=== PATIENT | female | born 1955 | race African-American/Black ===

== ENCOUNTER 2016-10-16 11:48 | Emergency (ER) | payer MEDICARE ==
--- NOTE | 2016-10-16 11:56 | ER Document Report ---
ED Medical Screen (RME) - General Stated Complaint: BLOOD PRESSURE PROBLEM Notes: patient is a 61 year old female who presents to the ED for elevated BP, headache , SOB referred by Dr. Trevino headache >24 hours over the past couple of weeks SOB: has been gasping intermittently for one month baseline 130/80's, on losartan took at 830 PMH: HTN, DM I have greeted and performed a rapid initial assessment of this patient. A comprehensive ED assessment and evaluation of the patient, analysis of test results and completion of the medical decision making process will be conducted by additional ED providers. TRAVEL OUTSIDE OF THE [place] IN LAST 30 DAYS: No - Related Data Allergies/Adverse Reactions: duloxetine Allergy (Verified 10/16/16 11:53) tramadol Allergy (Verified 10/16/16 11:53) Past Medical History - Past Medical History Cardiac Medical History: Reports: Hx Hypertension Endocrine Medical History: Reports: Hx Diabetes Mellitus Type 1, Hx Diabetes Mellitus Type 2 - Diet controlled, Hx Hypothyroidism GI Medical History: Reports: Hx Gastroesophageal Reflux Disease Musculoskeltal Medical History: Reports Hx Arthritis Past Surgical History: Reports: Hx Cholecystectomy, Hx Gynecologic Surgery - Bilateral oophorectomy, Hx Hysterectomy - Immunizations Hx Diphtheria, Pertussis, Tetanus Vaccination: Yes
[2016-10-16 12:43] LABS: ABSOLUTE BASOPHILS # (AUTO) 0.1 10^3/uL (0.0-0.2); ABSOLUTE LYMPHOCYTES (AUTO) 1.3 10^3/uL (0.5-4.7); ABSOLUTE MONOCYTES (AUTO) 0.6 10^3/uL (0.1-1.4); ABSOLUTE NEUT (AUTO) 6.4 10^3/uL (1.7-8.2); EOSINOPHILS % (AUTO) 0.1 % (0-6); HEMATOCRIT 38.7 % (36.0-47.0); HEMOGLOBIN 12.9 g/dL (12.0-15.5); LYMPHOCYTES % (AUTO) 15.9 % (13-45); MEAN CORPUSCULAR HEMOGLOBIN 28.9 pg (27.0-33.4); MEAN CORPUSCULAR HGB CONC 33.2 g/dL (32.0-36.0); MEAN CORPUSCULAR VOLUME 87 fl (80-97); MONOCYTES % (AUTO) 7.5 % (3-13); RED BLOOD COUNT 4.46 10^6/uL (3.72-5.28); SEGMENTED NEUTROPHILS % (AUTO) 75.5 % (42-78); WHITE BLOOD COUNT 8.5 10^3/uL (4.0-10.5)
[2016-10-16 13:09] LABS: ALANINE AMINOTRANSFERASE 68 U/L (9-52); ALBUMIN 3.9 g/dL (3.5-5.0); ALKALINE PHOSPHATASE 133 U/L (38-126); ANION GAP 10 (5-19); ASPARTATE AMINO TRANSFERASE 29 U/L (14-36); BILIRUBIN,TOTAL 0.4 mg/dL (0.2-1.3); BLOOD UREA NITROGEN 15 mg/dL (7-20); CALCIUM 9.7 mg/dL (8.4-10.2); CARBON DIOXIDE 27 mmol/L (22-30); CHLORIDE 106 mmol/L (98-107); CREATININE RESULT 0.76 mg/dL (0.52-1.25); GLUCOSE 210 mg/dL (75-110); POTASSIUM 3.5 mmol/L (3.6-5.0); SODIUM 143.3 mmol/L (137-145); TOTAL PROTEIN 6.9 g/dL (6.3-8.2)
[2016-10-16] MEDS ORDERED: POTASSIUM CHLORIDE 10 MEQ TABLET.SA PO ONE (16:07)
[2016-10-16 17:30] VITALS: BP 153/97
--- NOTE | 2016-10-16 18:05 | ER Document Report ---
ED General - General Chief Complaint: High Blood Pressure Stated Complaint: BLOOD PRESSURE PROBLEM TRAVEL OUTSIDE OF THE [place] IN LAST 30 DAYS: No - HPI Patient complains to provider of: elevated blood pressure dyspnea Notes: Patient coming in for evaluation of elevated blood pressure and dyspnea. Patient has been evaluated for similar complaints recently here in ER. Patient states that she was at her PCPs office and was referred to the ER for further evaluation. Patient states her dyspnea has been ongoing for over one month. States blood pressure is also been elevated states that her PCP is a change the medications recently. Denies any fevers chills nausea vomiting productive cough Was examined patient patient started to gasp such as diaphragmatic spasms. Patient states this is where her dyspnea in the past - Related Data Allergies/Adverse Reactions: duloxetine Allergy (Verified 10/16/16 11:53) tramadol Allergy (Verified 10/16/16 11:53) Past Medical History - Social History Smoking Status: Never Smoker Chew tobacco use (# tins/day): No Frequency of alcohol use: None Drug Abuse: None Family History: None Patient has suicidal ideation: No Patient has homicidal ideation: No - Past Medical History Cardiac Medical History: Reports: Hx Hypertension Endocrine Medical History: Reports: Hx Diabetes Mellitus Type 1, Hx Diabetes Mellitus Type 2 - Diet controlled, Hx Hypothyroidism Renal/ Medical History: Denies: Hx Peritoneal Dialysis GI Medical History: Reports: Hx Gastroesophageal Reflux Disease Musculoskeltal Medical History: Reports Hx Arthritis Past Surgical History: Reports: Hx Cholecystectomy, Hx Gynecologic Surgery - Bilateral oophorectomy, Hx Hysterectomy - Immunizations Hx Diphtheria, Pertussis, Tetanus Vaccination: Yes Review of Systems - Review of Systems Constitutional: Other - Hypertension EENT: No symptoms reported Cardiovascular: No symptoms reported Respiratory: Short of breath Gastrointestinal: No symptoms reported Genitourinary: No symptoms reported Female Genitourinary: No symptoms reported Musculoskeletal: No symptoms reported Skin: No symptoms reported Hematologic/Lymphatic: No symptoms reported Neurological/Psychological: No symptoms reported -: Yes All other systems reviewed and negative Physical Exam - Vital signs Vitals: Temp Pulse Resp BP Pulse Ox 97.8 F 95 24 H 166/101 H 99 10/16/16 11:53 10/16/16 11:53 10/16/16 11:53 10/16/16 11:53 10/16/16 11:53 Interpretation: Hypertensive - General General appearance: Appears well, Alert - HEENT Head: Normocephalic, Atraumatic Eyes: Normal Pupils: PERRL - Respiratory Respiratory status: No respiratory distress Chest status: Nontender Breath sounds: Normal Chest palpation: Normal - Cardiovascular Rhythm: Regular Heart sounds: Normal auscultation Murmur: No - Abdominal Inspection: Normal Distension: No distension Bowel sounds: Normal Tenderness: Nontender Organomegaly: No organomegaly - Back Back: Normal, Nontender - Extremities General upper extremity: Normal inspection, Nontender, Normal color, Normal ROM , Normal temperature General lower extremity: Normal inspection, Nontender, Normal color, Normal ROM , Normal temperature, Normal weight bearing. No: Gray's sign - Neurological Neuro grossly intact: Yes Cognition: Normal Orientation: AAOx4 Nell Coma Scale Eye Opening: Spontaneous Nell Coma Scale Verbal: Oriented Nell Coma Scale Motor: Obeys Commands [place] Coma Scale Total: 15 Speech: Normal Motor strength normal: LUE, RUE, LLE, RLE Sensory: Normal - Psychological Associated symptoms: Normal affect, Normal mood - Skin Skin Temperature: Warm Skin Moisture: Dry Skin Color: Normal Course - Re-evaluation Re-evalutation: 10/16/16 20:40 Patient's potassium was low this was replaced. Patient was observed in the hallway during that time patient had no shortness of breath no instances of what was similar to her dyspnea upon examination. Upon explaining that had discussed her case with her primary care physician and they requested that he follow-up with her next week patient started to have these episodes again consistent with possible diaphragmatic spasm. This more likely voluntary. Lab work shows no significant etiologies. Patient will be discharged home. - Vital Signs Vital signs: Temp Pulse Resp BP Pulse Ox 97.7 F 85 16 153/97 H 99 10/16/16 17:28 10/16/16 17:28 10/16/16 17:28 10/16/16 17:28 10/16/16 17:28 - Laboratory Result Diagrams: 10/16/16 12:25 10/16/16 12:25 Laboratory results interpreted by me: 10/16/16 10/16/16 12:25 12:25 RDW 16.0 H Potassium 3.5 L Glucose 210 H ALT 68 H Alkaline Phosphatase 133 H Discharge - Discharge Clinical Impression: Dyspnea Qualifiers: Dyspnea type: unspecified Qualified Code(s): R06.00 - Dyspnea, unspecified HTN (hypertension) Qualifiers: Hypertension type: unspecified secondary hypertension Qualified Code(s): I15.9 - Secondary hypertension, unspecified Condition: Good Disposition: HOME, SELF-CARE Instructions: High Blood Pressure, Requiring Treatment ([facility]), Dyspnea, Nonspecific ([facility]) Additional Instructions: I discussed your case with your primary care physician. Your potassium was low today we will replace that. Otherwise there is no critical pathology seen on examination. He recommends that you follow-up in his office next week. Please be sure that she a healthy diet. I would suggest eating more bananas or leafy green vegetables to replace your potassium at home. Referrals: KRISTINE REYES MD [Primary Care Provider] - Follow up as needed
== END 2016-10-16 17:51 | disposition home or self-care (01) ==
LOC: ER 11:48
DX: R06.00 Dyspnea, unspecified (principal); I15.9 Secondary hypertension, unspecified
CPT/HCPCS: 36415; 71020; 80053; 83735; 84484; 85025; 99285

== ENCOUNTER 2016-11-29 21:31 | Emergency (ER) | payer OTHER, MEDICARE ==
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
[2016-11-29 21:55] VITALS: BP 142/78
[2016-11-30] MEDS ORDERED: LIDOCAINE 5% (700 MG) TRANSDERMAL ADH..PATCH TP ONE (01:40)
[2016-11-30] MEDS ORDERED: IBUPROFEN 600 MG TABLET PO ONE (01:40)
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
== END 2016-11-30 02:50 | disposition home or self-care (01) ==
LOC: ER 21:31
DX: M54.2 Cervicalgia (principal); V89.2XXA Person injured in unspecified motor-vehicle accident, traffic, initial encounter; I10 Essential (primary) hypertension; E11.9 Type 2 diabetes mellitus without complications; E03.9 Hypothyroidism, unspecified; K21.9 Gastro-esophageal reflux disease without esophagitis; Z90.49 Acquired absence of other specified parts of digestive tract; Z90.710 Acquired absence of both cervix and uterus
CPT/HCPCS: 99283

== ENCOUNTER → 2017-08-10 | Outpatient (CLI) | payer MEDICARE ==
[2017-08-10 17:36] LABS: ANION GAP 14 (5-19); BLOOD UREA NITROGEN 17 mg/dL (7-20); CALCIUM 9.9 mg/dL (8.4-10.2); CARBON DIOXIDE 28 mmol/L (22-30); CHLORIDE 105 mmol/L (98-107); CREATININE RESULT 0.75 mg/dL (0.52-1.25); GLUCOSE 138 mg/dL (75-110); POTASSIUM 3.8 mmol/L (3.6-5.0); SODIUM 146.5 mmol/L (137-145)
[2017-08-10 18:12] LABS: MAGNESIUM 1.2 mg/dL (1.6-2.3)
== END ==
LOC: OD 16:49
PROVIDERS: ATTEND Internal Medicine Geriatric Medicine
DX: R25.2 Cramp and spasm (principal)
CPT/HCPCS: 36415; 80048; 83735

== ENCOUNTER → 2018-03-28 | Outpatient (CLI) | payer MEDICARE ==
[2018-03-28 17:25] LABS: ALANINE AMINOTRANSFERASE 28 U/L (9-52); ALKALINE PHOSPHATASE 93 U/L (38-126); ANION GAP 15 (5-19); ASPARTATE AMINO TRANSFERASE 21 U/L (14-36); BILIRUBIN,DIRECT 0.3 mg/dL (0.0-0.4); BILIRUBIN,TOTAL 0.4 mg/dL (0.2-1.3); BLOOD UREA NITROGEN 15 mg/dL (7-20); CALCIUM 9.5 mg/dL (8.4-10.2); CARBON DIOXIDE 25 mmol/L (22-30); CHLORIDE 108 mmol/L (98-107); GLUCOSE 175 mg/dL (75-110); POTASSIUM 3.6 mmol/L (3.6-5.0); SODIUM 147.9 mmol/L (137-145); TOTAL PROTEIN 7.1 g/dL (6.3-8.2)
[2018-03-29 09:36] LABS: CHOLESTEROL 198.05 mg/dL (0-200); TRIGLYCERIDES 95 mg/dL (<150)
[2018-03-29 09:47] LABS: DIRECT LDL 106 mg/dL (<100)
== END ==
LOC: OD 15:44
PROVIDERS: ATTEND Internal Medicine Geriatric Medicine
DX: E13.65 Other specified diabetes mellitus with hyperglycemia (principal); I10 Essential (primary) hypertension; E55.9 Vitamin D deficiency, unspecified
CPT/HCPCS: 36415; 80053; 80061; 82306; 83036

== ENCOUNTER → 2018-03-30 | Outpatient (CLI) | payer MEDICARE ==
--- NOTE | 2018-03-30 10:08 | WOMENS IMAGING REPORT ---
EXAM DESCRIPTION: 3D SCREENING MAMMO BILAT COMPLETED DATE/TIME: 03/30/2018 9:55 am REASON FOR STUDY: BILATERAL SCREENING MAMMO 3D/Z12.31 Z12.31 ENCNTR SCREEN MAMMOGRAM FOR MALIGNANT NEOPLASM OF SWETA COMPARISON: 2011, 2014 TECHNIQUE: Standard craniocaudal and mediolateral oblique views of each breast recorded using digita l acquisition and breast tomosynthesis. LIMITATIONS: None. FINDINGS: No masses, calcifications or architectural distortion. No areas of suspicion. Read with the assistance of CAD. .[facility] - R2 Cenova Version 1.3 .[facility] - R2 Cenova Version 1.3 .[facility] - R2 Cenova Version 2.4 .[facility] [place] - R2 Cenova Version 2.4 .[facility] - R2 [employer] Manager Version 9.2 IMPRESSION: NORMAL MAMMOGRAM. BIRADS 1. BREAST DENSITY: b. There are scattered areas of fibroglandular density. BIRAD: 1 NEGATIVE RECOMMENDATION: ROUTINE SCREENING Please continue yearly bilateral screening mammography/tomosynthesis in March 2019. COMMENT: The patient has been notified of the results by letter per [place] requirements. Additional no tification policies are in place for contacting patient with suspicious or incomplete findings. Quality ID #[id number]: The [employer] recommends an annual screening mammogram for women aged 40 years or over. This facility utilizes a reminder system to ensure that all patients receive reminder letters, and/or direct phone calls for appointments. This includes reminders for routine scr eening mammograms, diagnostic mammograms, or other Breast Imaging Interventions when appropriate. Th is patient will be placed in the appropriate reminder system. The [employer] (ACR) has developed recommendations for screening MRI of the breast s in certain patient populations, to be used in conjunction with mammography. Breast MRI surveillanc e may be appropriate for women with more than 20% lifetime risk of developing breast cancer as deter mined by genetic testing, significant family history of the disease, or history of mantle radiation f or Hodgkins Disease. ACR Practice Guidelines 2008. DBT Technology DBT is a type of tomographic mammography. With conventional mammography, overlapping breast tissue ma y make lesions difficult to detect, even with good compression. DBT uses an x-ray tube that rotates a round the breast, taking images at different angles. These images are then combined to create thin sl ices of the breast that the radiologist can view as a 3D reconstruction. The [employer] unit can perform full-field digital mammograms (2D imaging); or DBT (3D imaging); or both, in a combination mode that quickly performs both the mammogram and the tomosynthesis scan while the breast is still compressed. PQRS 6045F: Fluoroscopic imaging is not utilized for breast tomosynthesis. TECHNICAL DOCUMENTATION: FINDING NUMBER: (1) ASSESSMENT: (1) JOB ID: [id number] [employer]- All Rights Reserved Reading location - IP/workstation name: [email or web address]
== END ==
LOC: WI 09:25
PROVIDERS: ATTEND Internal Medicine Geriatric Medicine
DX: Z12.31 Encounter for screening mammogram for malignant neoplasm of breast (principal)
CPT/HCPCS: 77063; 77067

== ENCOUNTER 2018-04-02 08:07 | Emergency (ER) | payer MEDICARE ==
[2018-04-02] MEDS ORDERED: PHENAZOPYRIDINE HCL 200 MG TABLET PO ONE (09:11)
[2018-04-02] MEDS ORDERED: KETOROLAC TROMETHAMINE INJ/PF 30 MG/1 ML SDV IV ONE (09:11)
[2018-04-02] MEDS ORDERED: ONDANSETRON 4 MG TAB.RAPDIS PO ONE (09:38)
[2018-04-02 09:42] LABS: APPEARANCE,URINE SLIGHTLY-CLOUDY; BILIRUBIN,URINE NEGATIVE (NEGATIVE); COLOR,URINE STRAW; GLUCOSE, URINE >=500 mg/dL (NEGATIVE); KETONES,URINE NEGATIVE (NEGATIVE); LEUKOCYTE ESTERASE,URINE NEGATIVE (NEGATIVE); NITRITE,URINE NEGATIVE (NEGATIVE); PROTEIN,URINE 100 mg/dL (NEGATIVE); URINE SPECIFIC GRAVITY 1.014; UROBILINOGEN,URINE NEGATIVE mg/dL (<2.0)
[2018-04-02] MEDS ORDERED: HYDROMORPHONE HCL INJ/PF 2 MG/ML AMPULE IV ONE (10:27)
--- NOTE | 2018-04-02 10:37 | RADIOLOGY REPORT (SQ) ---
EXAM DESCRIPTION: CT LTD RENAL STONE PROTOCOL ON COMPLETED DATE/TIME: 04/02/2018 10:20 am REASON FOR STUDY: hematuria, flank pain R COMPARISON: None. TECHNIQUE: CT scan of the abdomen and pelvis performed without intravenous or oral contrast. Images reviewed with lung, soft tissue, and bone windows. Reconstructed coronal and sagittal MPR images revi ewed. All images stored on PACS. All CT scanners at this facility use dose modulation, iterative reconstruction, and/or weight based d osing when appropriate to reduce radiation dose to as low as reasonably achievable (ALARA). [facility]: Dose Right [facility]: CareDose [facility]: Dose Right [facility]: Teradose 4D [facility]: Smart Technologies RADIATION DOSE: CT Rad equipment meets quality standard of care and radiation dose reduction techniq ues were employed. CTDIvol: 16.2 mGy. DLP: 795 mGy-cm.mGy. LIMITATIONS: None. FINDINGS: LOWER CHEST: No significant findings. No nodules or infiltrates. NON-CONTRASTED LIVER, SPLEEN, ADRENALS: Liver: Fatty infiltration. Spleen: No abnormality. Adrenal s: No abnormality. PANCREAS: No abnormality. GALLBLADDER: Status post cholecystectomy. RIGHT KIDNEY AND URETER: Ectasia of right upper collecting system, right renal pelvis, and right uret er. The findings compatible with recent passage of a distal ureteral calculus. The ureter distal to the renal pelvis is normal. Perinephric inflammatory change. . LEFT KIDNEY AND URETER: Nonobstructing calculus mid left kidney. Left ureter is normal. AORTA AND RETROPERITONEUM: No aneurysm. No retroperitoneal masses or adenopathy. BOWEL AND PERITONEAL CAVITY: Hiatal hernia. APPENDIX: Normal. PELVIS, BLADDER, AND ABDOMINAL WALL:Urinary bladder: There is evidence of a calculus within the blad forest measuring 8 x 8 mm. BONES: No abnormality seen IMPRESSION: 1. Evidence of a ectasia of the right upper collecting system and right ureter secondar y to a recent passage of 8 mm calculus now noted within the bladder. 2. Fatty infiltration of liver . Nonobstructive calculus mid left kidney. COMMENT: Quality ID # [id number]: Final reports with documentation of one or more dose reduction techniques (e.g., Automated exposure control, adjustment of the mA and/or kV according to patient size, use of iterative reconstruction technique) TECHNICAL DOCUMENTATION: JOB ID: [id number] 2010 [employer]- All Rights Reserved Reading location - IP/workstation name: [email or web address]
[2018-04-02 10:40] LABS: ABSOLUTE LYMPHOCYTES (AUTO) 1.5 10^3/uL (0.5-4.7); ABSOLUTE MONOCYTES (AUTO) 0.8 10^3/uL (0.1-1.4); ABSOLUTE NEUT (AUTO) 10.3 10^3/uL (1.7-8.2); BASOPHILS % (AUTO) 0.2 % (0-2); EOSINOPHILS % (AUTO) 0.1 % (0-6); HEMATOCRIT 38.2 % (36.0-47.0); HEMOGLOBIN 12.5 g/dL (12.0-15.5); LYMPHOCYTES % (AUTO) 11.6 % (13-45); MEAN CORPUSCULAR HEMOGLOBIN 28.8 pg (27.0-33.4); MEAN CORPUSCULAR HGB CONC 32.7 g/dL (32.0-36.0); MEAN CORPUSCULAR VOLUME 88 fl (80-97); MONOCYTES % (AUTO) 6.7 % (3-13); PLATELET COUNT 414 10^3/uL (150-450); RED BLOOD COUNT 4.34 10^6/uL (3.72-5.28); RED CELL DISTRIBUTION WIDTH 17.6 % (11.5-14.0); SEGMENTED NEUTROPHILS % (AUTO) 81.4 % (42-78); TOTAL CELLS COUNTED % (AUTO) 100 %; WHITE BLOOD COUNT 12.6 10^3/uL (4.0-10.5)
[2018-04-02] MEDS ORDERED: OXYCODONE-ACETAMINOPHEN 5-325 MG TABLET PO ONE (11:24)
--- NOTE | 2018-04-02 12:03 | ER Document Report ---
ED General - General Chief Complaint: Flank Pain Stated Complaint: SIDE AND BACK PAIN Time Seen by Provider: 04/02/18 08:59 Notes: 62-year-old female presents emergency department stating that she developed symptoms of UTI about a week ago and was put on antibiotics in the form of Augmentin 3 days ago and states she is feeling worse instead of better. Complains of dysuria and frequency, states she is having right flank and low back pain radiating around to the right side of her abdomen associated with nausea, denies vomiting, fevers, hematuria. States her blood sugars have been slightly elevated. TRAVEL OUTSIDE OF THE [place] IN LAST 30 DAYS: No - Related Data Allergies/Adverse Reactions: duloxetine Allergy (Verified 04/02/18 08:08) tramadol Allergy (Verified 04/02/18 08:08) Past Medical History - General Information source: Patient - Social History Smoking Status: Never Smoker Chew tobacco use (# tins/day): No Frequency of alcohol use: None Drug Abuse: None Family History: Reviewed & Not Pertinent Patient has suicidal ideation: No Patient has homicidal ideation: No - Past Medical History Cardiac Medical History: Reports: Hx Hypertension Endocrine Medical History: Reports: Hx Diabetes Mellitus Type 1, Hx Diabetes Mellitus Type 2 - Diet controlled, Hx Hypothyroidism Renal/ Medical History: Denies: Hx Peritoneal Dialysis GI Medical History: Reports: Hx Gastroesophageal Reflux Disease Musculoskeletal Medical History: Reports Hx Arthritis Past Surgical History: Reports: Hx Cholecystectomy, Hx Gynecologic Surgery - Bilateral oophorectomy, Hx Hysterectomy - Immunizations Hx Diphtheria, Pertussis, Tetanus Vaccination: Yes Review of Systems - Review of Systems Constitutional: No symptoms reported Cardiovascular: No symptoms reported Gastrointestinal: See HPI, Nausea. denies: Diarrhea, Vomiting Genitourinary: See HPI, Burning, Dysuria, Flank pain -: Yes All other systems reviewed and negative Physical Exam - Vital signs Vitals: Temp Pulse Resp BP Pulse Ox 97.4 F 103 H 16 155/100 H 100 04/02/18 08:11 04/02/18 08:11 04/02/18 08:11 04/02/18 08:11 04/02/18 08:11 Interpretation: Hypertensive, Tachycardic - Notes Notes: GENERAL: Alert, interacts well. Rubbing the right side of her back, appears uncomfortable, rocking back and forth. HEAD: Normocephalic, atraumatic EYES: Pupils equal, round and reactive to light, extraocular movements intact. ENT: Oral mucosa moist, tongue midline. NECK: Full range of motion, supple, trachea midline. LUNGS: Clear to auscultation bilaterally, no wheezes, rales or rhonchi, no respiratory distress. HEART: Regular rate and rhythm, no murmurs, gallops, rubs. ABDOMEN: Soft, right upper quadrant tenderness to palpation, right CVA tenderness to percussion, nondistended, bowel sounds present in all 4 quadrants. EXTREMITIES: Moves all 4 extremities spontaneously, no edema, radial and dorsalis pedis pulses 2/4 bilaterally. No cyanosis. NEUROLOGICAL: Alert and oriented x3, normal speech. PSYCH: Anxious and uncomfortable but communicates well. SKIN: Warm, Dry, normal turgor, no rashes or lesions noted. Course - Re-evaluation Re-evalutation: 04/02/18 11:59 CBC reveals leukocytosis of 12.6 otherwise unremarkable, urinalysis shows greater than 500 glucose, large amount of blood, only 9 WBCs, no nitrites and no leukocyte esterase, there are greater than 182 squamous epithelial cells, this is suspicious for kidney stone, renal CT scan was performed and it showed evidence of ectasia of the right upper collecting system and right ureter secondary to recent passage of an 8 mm stone now noted within the bladder, there is perinephric inflammatory change as well. There is no evidence of ongoing urinary tract infection. Patient will be given Pyridium to help with the pain, given her age will also be given a small amount of Vicodin to help with her pain at home and discharged home. Encouraged to finish taking her antibiotic and follow-up with Dr. Reyes as an outpatient. Discharge will be delayed until chemistries have returned to recheck renal function. 04/02/18 13:17 CMP unremarkable, no renal dysfunction, discharged home. - Vital Signs Vital signs: Temp Pulse Resp BP Pulse Ox 97.4 F 103 H 18 146/83 H 96 04/02/18 08:11 04/02/18 08:11 04/02/18 11:01 04/02/18 11:01 04/02/18 11:01 - Laboratory Result Diagrams: 04/02/18 10:04 04/02/18 12:10 Laboratory results interpreted by me: 04/02/18 04/02/1818 09:25 10:04 12:10 WBC 12.6 H RDW 17.6 H Seg Neutrophils % 81.4 H Lymphocytes % 11.6 L Absolute Neutrophils 10.3 H Sodium 145.2 H Glucose 158 H Urine Protein 100 H Urine Glucose (UA) >=500 H Urine Blood LARGE H Discharge - Discharge Clinical Impression: Ureteral stone Condition: Stable Disposition: HOME, SELF-CARE Additional Instructions: Today you had a kidney stone. It has already passed into your bladder. You will have a small amount of pain when you pee it out. Otherwise your pain should continue to slowly improve. You may take ibuprofen 800 mg every 8 hours but I do not want to doing this for more than 2 days. Please also take the Pyridium (Azo) as directed to help decrease your pain. You may use the Vicodin as directed for pain that is not controlled by the Pyridium and the ibuprofen. Please return to the emergency department for uncontrollable pain, fevers or any new or concerning symptoms. Otherwise follow-up with Dr. Reyes. Prescriptions: Hydrocodone/Acetaminophen [[employer] [place] [employer] 5-325 Tablet] 1 - 2 tab PO ASDIR PRN #15 tab PRN Reason: Phenazopyridine HCl [Pyridium 200 mg Tablet] 200 mg PO TID #7 tablet Referrals: KRISTINE REYES MD [Primary Care Provider] - Follow up as needed
[2018-04-02 12:50] LABS: ALANINE AMINOTRANSFERASE 32 U/L (9-52); ALBUMIN 4.3 g/dL (3.5-5.0); ALKALINE PHOSPHATASE 105 U/L (38-126); ANION GAP 17 (5-19); ASPARTATE AMINO TRANSFERASE 27 U/L (14-36); BILIRUBIN,TOTAL 0.4 mg/dL (0.2-1.3); BLOOD UREA NITROGEN 12 mg/dL (7-20); CARBON DIOXIDE 24 mmol/L (22-30); CHLORIDE 104 mmol/L (98-107); GLUCOSE 158 mg/dL (75-110); POTASSIUM 3.6 mmol/L (3.6-5.0); SODIUM 145.2 mmol/L (137-145); TOTAL PROTEIN 7.5 g/dL (6.3-8.2)
[2018-04-02 13:38] VITALS: BP 160/86
== END 2018-04-02 13:38 | disposition home or self-care (01) ==
LOC: ER 08:07
DX: N20.1 Calculus of ureter (principal); R11.0 Nausea; R10.9 Unspecified abdominal pain; I10 Essential (primary) hypertension; E11.9 Type 2 diabetes mellitus without complications; E03.9 Hypothyroidism, unspecified; Z90.49 Acquired absence of other specified parts of digestive tract; Z90.710 Acquired absence of both cervix and uterus
CPT/HCPCS: 99284; 96374; 96375; 36415; 87086; 85025; 80053; 81001; 76380; A9270 ×3; J1885; J1170; J3490; S0119

== ENCOUNTER 2018-09-03 09:44 | Emergency (ER) | payer MEDICARE, MEDICAID ==
[2018-09-03 09:51] VITALS: BP 144/84
--- NOTE | 2018-09-03 09:59 | ER Document Report ---
ED Medical Screen (RME) - General Chief Complaint: Back Pain Stated Complaint: BACK PAIN Time Seen by Provider: 09/03/18 09:56 Mode of Arrival: Ambulatory Information source: Patient TRAVEL OUTSIDE OF THE [place] IN LAST 30 DAYS: No - HPI Patient complains to provider of: back pain; fall Onset: Last week - pt is being treated at [facility] for herniated disk. Had facet injection last week but fell shortly after that. Now with worsening LBP - Related Data Allergies/Adverse Reactions: duloxetine Allergy (Verified 04/02/18 08:08) tramadol Allergy (Verified 09/03/18 09:46) Past Medical History - Past Medical History Cardiac Medical History: Reports: Hx Hypertension Endocrine Medical History: Reports: Hx Diabetes Mellitus Type 1, Hx Diabetes Mellitus Type 2 - Diet controlled, Hx Hypothyroidism Renal/ Medical History: Denies: Hx Peritoneal Dialysis GI Medical History: Reports: Hx Gastroesophageal Reflux Disease Musculoskeltal Medical History: Reports Hx Arthritis Past Surgical History: Reports: Hx Cholecystectomy, Hx Gynecologic Surgery - Bilateral oophorectomy, Hx Hysterectomy - Immunizations Hx Diphtheria, Pertussis, Tetanus Vaccination: Yes Physical Exam - Vital signs Vitals: Temp Pulse Resp BP Pulse Ox 97.8 F 93 16 144/84 H 98 09/03/18 09:50 09/03/18 09:50 09/03/18 09:50 09/03/18 09:50 09/03/18 09:50 Course - Vital Signs Vital signs: Temp Pulse Resp BP Pulse Ox 97.8 F 93 16 144/84 H 98 09/03/18 09:50 09/03/18 09:50 09/03/18 09:50 09/03/18 09:50 09/03/18 09:50 Doctor's Discharge - Discharge Referrals: KRISTINE REYES MD [Primary Care Provider] - Follow up as needed
--- NOTE | 2018-09-03 10:41 | ER Document Report ---
ED Neck/Back Problem - General Mode of Arrival: Ambulatory Information source: Patient TRAVEL OUTSIDE OF THE [place] IN LAST 30 DAYS: No - General Chief Complaint: Back Pain Stated Complaint: BACK PAIN Time Seen by Provider: 09/03/18 09:56 Notes: 63-year-old female who presents to the emergency department today with complaints of exacerbation of her chronic low back pain. Patient states that she was diagnosed with a herniated disc approximately 5 weeks ago at [facility]. Patient states she had a mechanical fall that was not precipitated with any symptoms approximately 1 week ago. Patient states she was standing on the top step of her porch and fell down landing on her buttocks from a standing position. Patient states that a few days after the fall she developed increasing muscle spasm in her lower back. Patient states that since the fall her muscle spasms have become more frequent and more severe and she adds that they are now radiating up her back more than normal. Patient states she called her physician at [facility] who told her to "come to the emergency department and have x-rays done". Patient states she does take gabapentin and tizanidine and her tizanidine was increased since the fall. Patient states she has had diarrhea and leg numbness which is chronic and not changed. Patient denies any urinary or fecal incontinence, tingling, or saddle anesthesia. (DEBRA HAWTHORNE) - Related Data Allergies/Adverse Reactions: duloxetine Allergy (Verified 04/02/18 08:08) tramadol Allergy (Verified 09/03/18 09:46) Past Medical History - General Information source: Patient - Social History Smoking Status: Never Smoker Cigarette use (# per day): No Chew tobacco use (# tins/day): No Frequency of alcohol use: None Drug Abuse: None Family History: Reviewed & Not Pertinent Patient has suicidal ideation: No Patient has homicidal ideation: No - Past Medical History Cardiac Medical History: Reports: Hx Hypertension Endocrine Medical History: Reports: Hx Diabetes Mellitus Type 2 - Diet controlled, Hx Hypothyroidism GI Medical History: Reports: Hx Gastroesophageal Reflux Disease Musculoskeletal Medical History: Reports Hx Arthritis, Reports Other - Hx herniated disc Past Surgical History: Reports: Hx Cholecystectomy, Hx Gynecologic Surgery - Bilateral oophorectomy, Hx Hysterectomy - Immunizations Hx Diphtheria, Pertussis, Tetanus Vaccination: Yes Review of Systems - Review of Systems Constitutional: No symptoms reported EENT: No symptoms reported Cardiovascular: No symptoms reported Respiratory: No symptoms reported Gastrointestinal: See HPI, Diarrhea Genitourinary: No symptoms reported Female Genitourinary: No symptoms reported Musculoskeletal: See HPI, Back pain Skin: No symptoms reported Hematologic/Lymphatic: No symptoms reported Neurological/Psychological: See HPI, Numbness - chronic. denies: Tingling -: Yes All other systems reviewed and negative Physical Exam - Vital signs Vitals: Temp Pulse Resp BP Pulse Ox 97.8 F 93 16 144/84 H 98 09/03/18 09:50 09/03/18 09:50 09/03/18 09:50 09/03/18 09:50 09/03/18 09:50 - Notes Notes: PHYSICAL EXAM GENERAL: Alert, interacts well. No acute distress. HEAD: Normocephalic, atraumatic. EYES: Pupils equal, round, and reactive to light. Extraocular movements intact. ENT: Oral mucosa moist, tongue midline. NECK: Full range of motion. Supple. Trachea midline. LUNGS: No respiratory distress. BACK: Midline bony tenderness over the mid-lumbar spine without step off or deformity. Paraspinal muscle spasm with associated tenderness with palpation. EXTREMITIES: Moves all 4 extremities spontaneously. No edema, radial and dorsalis pedis pulses 2/4 bilaterally. No cyanosis. NEUROLOGICAL: Alert and oriented x3. Normal speech. Patellar DTRs 2+ bilaterally. 5/5 great toe raising strength bilaterally. Complains of pain with straight leg raise bilaterally, but states the pain stops at her thighs, does not go past the knees. Ambulates with cane in right hand. PSYCH: Normal affect, normal mood. SKIN: Warm, dry, normal turgor. No rashes or lesions noted. (DEBRA HAWTHORNE) Course - Re-evaluation Re-evalutation: 09/03/18 10:56 X-rays negative for acute fracture dislocation, symptoms are not consistent with need for emergent MRI, no evidence of cauda equina, patient's primary managing physician already increased her muscle relaxers yesterday, patient will be discharged to home, encouraged to return for worsening numbness, new numbness, bowel or bladder dysfunction or difficulty walking. (PERRI SOSA) - Vital Signs Vital signs: Temp Pulse Resp BP Pulse Ox 97.8 F 93 16 144/84 H 98 09/03/18 09:50 09/03/18 09:50 09/03/18 09:50 09/03/18 09:50 09/03/18 09:50 Discharge - Discharge Clinical Impression: Lumbar radiculopathy, acute Condition: Stable Disposition: HOME, SELF-CARE Additional Instructions: You appear to have had an acute worsening of your herniated disc however you do not have symptoms that would suggest you need surgery for this today. Your x- ray did not show any signs of broken bones in your back. You need to follow-up with your principal bioinformatics specialist in the next 1-2 weeks. You should return to the emergency department immediately if you develop new numbness, difficulty walking, inability to control your bowels or bladder or any new or concerning symptoms. Referrals: KRISTINE REYES MD [Primary Care Provider] - Follow up as needed Scribe Attestation: 09/03/18 19:35 I personally performed the services described in the documentation, reviewed and edited the documentation which was dictated to the scribe in my presence, and it accurately records my words and actions. (PERRI SOSA) Scribe Documentation - Scribe Written by Azucena:: Azucena Chen, 09/03/2018 1304 acting as scribe for :: Renetta
--- NOTE | 2018-09-03 10:45 | RADIOLOGY REPORT (SQ) ---
EXAM DESCRIPTION: L SPINE WHOLE COMPLETED DATE/TIME: 09/03/2018 10:21 am REASON FOR STUDY: fall COMPARISON: None. NUMBER OF VIEWS: Five views including obliques. TECHNIQUE: AP, lateral, oblique, and sacral radiographic images acquired of the lumbar spine. LIMITATIONS: None. FINDINGS: MINERALIZATION: Normal. SEGMENTATION: Normal. No transitional anatomy. ALIGNMENT: Normal. VERTEBRAE: Maintained height. No fracture or worrisome bone lesion. DISCS: No focal disc space narrowing. Scattered osteophytes. POSTERIOR ELEMENTS: Pedicles and facets are intact. No pars defect or posterior arch defects. HARDWARE: None in the spine. PARASPINAL SOFT TISSUES: Normal. PELVIS: No fractures. OTHER: No other significant finding. IMPRESSION: No acute findings. TECHNICAL DOCUMENTATION: JOB ID: [id number] [email or web address]- All Rights Reserved Reading location - IP/workstation name: [email or web address]
== END 2018-09-03 11:11 | disposition home or self-care (01) ==
LOC: ER 09:44
DX: M54.16 Radiculopathy, lumbar region (principal); I10 Essential (primary) hypertension; K21.9 Gastro-esophageal reflux disease without esophagitis; Z90.49 Acquired absence of other specified parts of digestive tract; Z88.6 Allergy status to analgesic agent
CPT/HCPCS: 72110; 99283

== ENCOUNTER 2019-01-24 07:15 | Outpatient (CLI) | payer MEDICARE, MEDICAID ==
[~2019-01-24 07:15] MED LIST: CONTAINER EMPTY IV PRN; IRON DEXTRAN COMPLEX IV PRN
[2019-01-24] MEDS ORDERED: DIPHENHYDRAMINE HCL 50 MG/ML VIAL IV PRN (08:00)
[2019-01-24] MEDS ORDERED: ACETAMINOPHEN 325 MG TABLET PO PRN (08:00)
[2019-01-24] MEDS ORDERED: IRON DEXTRAN COMPLEX 25 MG in NORMAL SALINE 100 ML IV PRN (08:00)
[2019-01-24] MEDS ORDERED: NORMAL SALINE IV PRN (08:00)
[2019-01-24] MEDS ORDERED: IRON DEXTRAN COMPLEX IV PRN (08:00)
[2019-01-24] MEDS ORDERED: FAMOTIDINE INJ/PF 20 MG/2 ML SDV IV PRN (08:00)
[2019-01-24] MEDS ORDERED: NORMAL SALINE 250 ML IV PRN (08:00)
[2019-01-24 08:19] VITALS: BP 154/92
== END 2019-01-24 16:18 | disposition home or self-care (01) ==
LOC: II 07:15 → 5TH 07:58 → II 16:18
PROVIDERS: ATTEND Internal Medicine Medical Oncology
PROC: 3E033GC Introduction of Other Therapeutic Substance into Peripheral Vein, Percutaneous Approach (ICD-10-PCS; principal; 2019-01-24)
DX: D50.9 Iron deficiency anemia, unspecified (principal)
CPT/HCPCS: 96365; 96366; 96367; 96374; A9270 ×2; J1200; J1750; J7040; 96375; J3490; J7050

== ENCOUNTER → 2019-04-20 | Outpatient (CLI) | payer MEDICARE, MEDICAID ==
--- NOTE | 2019-04-20 16:40 | RADIOLOGY REPORT (SQ) ---
EXAM DESCRIPTION: KUB COMPLETED DATE/TIME: 04/20/2019 4:26 pm REASON FOR STUDY: CONSTIPATION - SLOW TRANSIT K59.01 SLOW TRANSIT CONSTIPATION COMPARISON: None. NUMBER OF VIEWS: One view. TECHNIQUE: Supine radiographic image of the abdomen acquired. LIMITATIONS: None. FINDINGS: BOWEL GAS PATTERN: Normal bowel gas pattern. No dilated loops. CALCIFICATIONS: No suspicious calcifications. SOFT TISSUES: No gross mass or suggestion of organomegaly. HARDWARE: Lower lumbar fusion hardware. Cholecystectomy clips. BONES: No acute fracture. No worrisome bone lesions. OTHER: No other significant finding. IMPRESSION: NO RADIOGRAPHIC EVIDENCE FOR ACUTE ABDOMINAL DISEASE. TECHNICAL DOCUMENTATION: JOB ID: [id number] 2010 [employer] All Rights Reserved Reading location - IP/workstation name: [email or web address]
== END ==
LOC: OD 16:00
PROVIDERS: ATTEND Internal Medicine Gastroenterology
DX: K59.01 Slow transit constipation (principal)
CPT/HCPCS: 74018

== ENCOUNTER → 2020-02-06 | Outpatient (CLI) | payer MEDICARE, MEDICAID ==
--- NOTE | 2020-02-06 11:29 | RADIOLOGY REPORT (SQ) ---
EXAM DESCRIPTION: CHEST PA/LATERAL IMAGES COMPLETED DATE/TIME: 02/06/2020 10:19 am REASON FOR STUDY: COUGH COMPARISON: PA and lateral views of the chest from 10/16/2016 EXAM PARAMETERS: NUMBER OF VIEWS: Two views. TECHNIQUE: PA and lateral views of the chest were obtained. RADIATION DOSE: NA. LIMITATIONS: None. FINDINGS: LUNGS AND PLEURA: No consolidation, pleural effusion or pneumothorax. MEDIASTINUM AND HILAR STRUCTURES: No mediastinal or hilar contour abnormality. HEART AND VASCULAR STRUCTURES: The cardiac silhouette and pulmonary vasculature are within normal ward its. BONES: No acute findings. HARDWARE: Cholecystectomy clips and lumbar fixation hardware. OTHER: No other finding. IMPRESSION: No acute cardiopulmonary process. TECHNICAL DOCUMENTATION: JOB ID: [id number] 2010 [email or web address]- All Rights Reserved Reading location - IP/workstation name: [email or web address]
== END ==
LOC: OD 10:08
PROVIDERS: ATTEND Nurse Practitioner Family
DX: R05 Cough (principal)
CPT/HCPCS: 71046

== ENCOUNTER → 2020-05-21 | Outpatient (CLI) | payer MEDICAID, MEDICARE ==
--- NOTE | 2020-05-21 16:29 | WOMENS IMAGING REPORT ---
EXAM DESCRIPTION: 3D SCREENING MAMMO BILAT IMAGES COMPLETED DATE/TIME: 05/21/2020 4:12 pm REASON FOR STUDY: Z12.31 ENCOUNTER FOR SCREENING MAMMOGRAM FOR MALIGNANT NEOPLASM OF BREAST Z12.31 ENCNTR SCREEN MAMMOGRAM FOR MALIGNANT NEOPLASM OF SWETA COMPARISON: Priors dating back to 2011. EXAM PARAMETERS: Views: Standard craniocaudal and mediolateral oblique views of each breast recorded using digital acquisition and breast tomosynthesis. Read with the assistance of CAD. .[facility] - R2 [employer]usser Version 9.2 LIMITATIONS: None. FINDINGS: No suspicious masses, suspicious calcifications or architectural distortion. No areas of c oncern. IMPRESSION: NEGATIVE MAMMOGRAM. BIRADS 1. BREAST DENSITY: b. There are scattered areas of fibroglandular density. BIRAD: ASSESSMENT: 1 NEGATIVE RECOMMENDATION: ROUTINE SCREENING COMMENT: The patient has been notified of the results by letter per MQSA requirements. Additional no tification policies are in place for contacting patient with suspicious or incomplete findings. Quality ID #[id number]: The [employer] recommends an annual screening mammogram for women aged 40 years or over. This facility utilizes a reminder system to ensure that all patients receive reminder letters, and/or direct phone calls for appointments. This includes reminders for routine scr eening mammograms, diagnostic mammograms, or other Breast Imaging Interventions when appropriate. Th is patient will be placed in the appropriate reminder system. TECHNICAL DOCUMENTATION: FINDING NUMBER: (1) ASSESSMENT: (1) JOB ID: [id number] 2010 [email or web address]- All Rights Reserved Reading location - IP/workstation name: [email or web address]
== END ==
LOC: WI 14:59
PROVIDERS: ATTEND Internal Medicine Geriatric Medicine
DX: Z12.31 Encounter for screening mammogram for malignant neoplasm of breast (principal)
CPT/HCPCS: 77063; 77067